=== PATIENT | female | born 1980 | race Caucasian/White ===

== ENCOUNTER 2016-11-07 18:41 | Inpatient (IN) | payer MEDICAID ==
--- NOTE | 2016-11-07 19:37 | EDM.PDOC ---
[id number] Complaint: SEIZURE Time Seen by Provider: 11/07/16 18:45 Source of Information: Reports: Patient, EMS History Limitations: Reports: Other (Some confusion with alcohol withdrawal) - History of Present Illness INITIAL COMMENTS - FREE TEXT/NARRATIVE: 28-year-old female admitted to [place] for detox today appears to be in delirium tremens with confusion, anxiousness, possible seizure, hypertension and tachycardia. Apparently she's been given 40 mg of Valium today. She is confused as to the time and place, think she's been in [place] since Tuesday and appears to be in withdrawal. She was given her Keppra dose orally. 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 Denies: Headache Psychiatric: Reports: Anxiety - Physical Exam Exam: See Below Exam Limited By: Other (Anxious, mildly confused) General Appearance: Alert, Anxious Eye Exam: Bilateral Eye: EOMI Respiratory/Chest: No Respiratory Distress, Lungs Clear Cardiovascular: Regular Rate, Rhythm, Tachycardia GI/Abdominal: Non-Tender Neuro Exam (Abbreviated): Alert, Disoriented (Mildly disoriented) Psychiatric: Anxious Skin Exam: Warm, Dry Course - Vital Signs Last Recorded V/S: Last Vital Signs Temp 98.5 F 11/07/16 23:40 Pulse 112 H 11/07/16 21:25 Resp 22 H 11/08/16 01:00 BP 132/86 11/08/16 01:00 Pulse Ox 95 11/08/16 01:00 - Orders/Labs/Meds Orders: Active Orders 24 hr Category Date Time Status MVI, Adult with Vitamin K [Infuvite Adult] 10 ml Med 11/07/16 20:00 Active Thiamine [Vitamin B-1] 100 mg Folic Acid 1 mg Magnesium Sulfate [Magnesium Sulfate 50%] 3 gm Sodium Chloride 0.9% [Normal Saline] 1,000 ml IV ASDIRECTED Medication Orders Diazepam (Valium) 5 - 20 mg IVPUSH Q4H PRN PRN Reason: Agitation Diazepam (Valium.) 5 - 20 mg PO Q4H PRN PRN Reason: Agitation Diazepam (Valium) 5 - 20 mg IVPUSH Q1H PRN PRN Reason: Agitation Last Admin: 11/08/16 01:00 Dose: 20 mg Admin: 11/08/16 00:13 Dose: 20 mg Diazepam (Valium.) 5 - 20 mg PO Q1H PRN PRN Reason: Agitation Diazepam (Valium) 10 - 20 mg IVPUSH Q30M PRN PRN Reason: Agitation Diazepam (Valium) 10 - 20 mg PO Q30M PRN PRN Reason: Agitation Multivitamins/Minerals 10 ml/Thiamine HCl 100 mg/ Folic Acid 1 mg/ Magnesium Sulfate 3 gm/ Sodium Chloride 1,017.2 mls @ 500 mls/hr IV ASDIRECTED JD Last Admin: 11/07/16 20:32 Dose: 500 mls/hr Sodium Chloride (Normal Saline) 1,000 mls @ 125 mls/hr IV ASDIRECTED JD Levetiracetam (Keppra) 1,500 mg PO BID [facility] Labs: Laboratory Tests 11/07/16 11/07/16 Range/Units 19:21 19:21 WBC 7.6 (4.5-11.0) K/uL RBC 4.12 (3.30-5.50) M/uL Hgb 13.3 (12.0-15.0) g/dL Hct 38.4 (36.0-48.0) % MCV 93 (80-98) fL MCH 32 H (27-31) pg MCHC 35 (32-36) % Plt Count 134 L (150-400) K/uL Neut % (Auto) 80 H (36-66) % Lymph % (Auto) 10 L (24-44) % [place] % (Auto) 10 H (2-6) % Eos % (Auto) 0 L (2-4) % Baso % (Auto) 0 (0-1) % Sodium 139 L (140-148) mmol/L Potassium 3.8 (3.6-5.2) mmol/L Chloride 100 (100-108) mmol/L Carbon Dioxide 27 (21-32) mmol/L Anion Gap 15.8 H (5.0-14.0) mmol/L BUN 8 (7-18) mg/dL Creatinine 0.8 (0.6-1.0) mg/dL Est Cr Clr Drug Dosing 95.59 mL/min Estimated GFR (MDRD) > 60 (>60) Glucose 121 H (74-106) mg/dL Calcium 7.9 L (8.5-10.1) mg/dL Magnesium 1.0 L (1.8-2.4) mg/dL Meds: Medications Generic Name Dose Route Start Last Admin Trade Name Freq PRN Reason Stop Dose Admin Diazepam 5 - 20 mg 11/07/16 23:47 Valium IVPUSH Q4H PRN Agitation Diazepam 5 - 20 mg 11/07/16 23:51 Valium. PO Q4H PRN Agitation Diazepam 5 - 20 mg 11/07/16 23:52 11/08/16 01:00 Valium IVPUSH 20 mg Q1H PRN Administration Agitation Diazepam 5 - 20 mg 11/07/16 23:55 Valium. PO Q1H PRN Agitation Diazepam 10 - 20 mg 11/07/16 23:56 Valium IVPUSH Q30M PRN Agitation Diazepam 10 - 20 mg 11/08/16 00:08 Valium PO Q30M PRN Agitation Multivitamins/Minerals 10 ml/ 1,017.2 mls @ 500 mls/hr 11/07/16 20:00 20:32 Thiamine HCl 100 mg/ Folic IV 500 mls/hr Acid 1 mg/ Magnesium Sulfate 3 ASDIRECTED JD Administration gm/ Sodium Chloride Sodium Chloride 1,000 mls @ 125 mls/hr 11/07/16 21:30 Normal Saline IV ASDIRECTED JD Levetiracetam 1,500 mg 11/08/16 09:00 Keppra PO BID JD Discontinued Medications Generic Name Dose Route Start Last Admin Trade Name Freq PRN Reason Stop Dose Admin Diazepam 10 - 20 mg 11/07/16 23:45 Valium PO Q30M JD Magnesium Oxide 400 mg 11/07/16 19:39 11/07/16 19:44 Magnesium Oxide PO 11/07/16 19:40 400 mg ONETIME ONE Administration - Re-Assessments/Exams Free Text/Narrative Re-Assessment/Exam: 11/07/16 19:37 Patient was given her normal dose of Keppra orally, 1500 mg. CBC BMP and magnesium were obtained. Patient was monitored for additional seizure activity. 11/07/16 19:52 Magnesium returned 1.0, she was given 400 mg by mouth. A banana bag was started at 500 mL an hour and Dr. Dubois was called for admission to manage delirium tremens after I discussed her case with Jaleel Gibson and they were uncomfortable taking her back. Departure - Departure Time of Disposition: 23:33 Disposition: Admitted As Inpatient 64 Condition: Fair Clinical Impression: Alcohol withdrawal delirium - Discharge Information - My Orders Last 24 Hours: My Active Orders 11/07/16 20:00 MVI, Adult with Vitamin K [Infuvite Adult] 10 ml Thiamine [Vitamin B-1] 100 mg Folic Acid 1 mg Magnesium Sulfate [Magnesium Sulfate 50%] 3 gm Sodium Chloride 0.9% [Normal Saline] 1,000 ml IV ASDIRECTED - Assessment/Plan Last 24 Hours: My Active Orders 11/07/16 20:00 MVI, Adult with Vitamin K [Infuvite Adult] 10 ml Thiamine [Vitamin B-1] 100 mg Folic Acid 1 mg Magnesium Sulfate [Magnesium Sulfate 50%] 3 gm Sodium Chloride 0.9% [Normal Saline] 1,000 ml IV ASDIRECTED
[2016-11-07] MEDS ORDERED: Magnesium Oxide 400 MG Tab PO ONE (19:39)
[2016-11-07] MEDS ORDERED: MVI, Adult with Vitamin K 10 ML, Thiamine 100 MG, Folic Acid 1 MG, Magnesium Sulfate 3 ... IV SCH ×5 (20:00)
[2016-11-07] MEDS ORDERED: Sodium Chloride 0.9% 1,000 ML IV SCH (21:30)
--- NOTE | 2016-11-07 21:33 | PCM.HP ---
H&P History of Present Illness - General Date of Service: 11/07/16 Admit Problem/Dx: Admission Diagnosis/Problem Admission Diagnosis/Problem Alcohol intoxication delirium Source of Information: Patient, EMS History Limitations: Reports: Altered Mental Status - History of Present Illness Initial Comments - Free Text/Narative: Came to [facility] today from [facility] giving a history of a Brain Tumor 2 years ago and had surgery. She has had seizures and had one today. Apparently did not get her Levetiracetam today and had a seizure today about 4 pm and was sent to the hospital ER and will be admitted. She had been40 mg of Valium for withdrawl of alcohol and still was in DT's then had a seizures. Lab showed showed Mg low. Other labs was normal. 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: Neurological History: Reports: Seizure Other Psychiatric History: HX OF ALCOHOL ABUSE Oncologic (Cancer) History: Reports: Brain - Past Surgical History Other HEENT Surgeries/Procedures: HX OF BRAIN TUMOR Social & Family History - Tobacco Use Smoking Status *Q: Unknown Ever Smoked H&P Review of Systems - Review of Systems: Review Of Systems: See Below General: Reports: No Symptoms HEENT: Reports: No Symptoms Pulmonary: Reports: No Symptoms Cardiovascular: Reports: No Symptoms Gastrointestinal: Reports: No Symptoms Genitourinary: Reports: No Symptoms Musculoskeletal: Reports: No Symptoms Skin: Reports: No Symptoms Psychiatric: Reports: Hallucinations, Hallucinations (Auditory) Neurological: Reports: Seizure Hematologic/Lymphatic: Reports: No Symptoms Immunologic: Reports: No Symptoms Exam - Exam Exam: See Below - Vital Signs Vital Signs: Last Vital Signs Temp 97.9 F 11/07/16 18:43 Pulse 112 H 11/07/16 21:25 Resp 20 11/07/16 21:25 BP 128/93 H 11/07/16 21:25 Pulse Ox 98 11/07/16 21:25 Weight: 140 lb - Exam General: Alert, Oriented, 4 HEENT: PERRLA, Hearing Intact, Mucosa Moist & [place], Nares Patent, Normal Nasal Septum, Posterior Pharynx Clear, Conjunctiva Clear, EOMI, EACs Clear, TMs Clear Neck: Supple, Trachea Midline, 2 Lungs: Clear to Auscultation, Normal Respiratory Effort Cardiovascular: Regular Rate, Regular Rhythm GI/Abdominal Exam: Normal Bowel Sounds, Soft, Non-Tender, No Organomegaly, No Distention, No Abnormal Bruit, No Mass, Pelvis Stable Back Exam: Normal Inspection, Full Range of Motion, NT Extremities: Normal Inspection, Normal Range of Motion, Non-Tender, No Pedal Edema, Normal Capillary Refill Peripheral Pulses: 1+: Radial (L), Radial (R) Skin: Warm, Dry, Intact Neuro Extensive - Mental Status: Memory Intact, Disorientation to Place, Disorientation to Time Neuro Extensive - Motor, Sensory, Reflexes: Normal Reflexes DTR: 2+: Patella (L), Patella (R) Psychiatric: Labile Mood - Patient Data Lab Results Last 24 hrs: Laboratory Results - last 24 hr 11/07/16 11/07/16 Range/Units 19:21 19:21 WBC 7.6 (4.5-11.0) K/uL RBC 4.12 (3.30-5.50) M/uL Hgb 13.3 (12.0-15.0) g/dL Hct 38.4 (36.0-48.0) % MCV 93 (80-98) fL MCH 32 H (27-31) pg MCHC 35 (32-36) % Plt Count 134 L (150-400) K/uL Neut % (Auto) 80 H (36-66) % Lymph % (Auto) 10 L (24-44) % [place] % (Auto) 10 H (2-6) % Eos % (Auto) 0 L (2-4) % Baso % (Auto) 0 (0-1) % Sodium 139 L (140-148) mmol/L Potassium 3.8 (3.6-5.2) mmol/L Chloride 100 (100-108) mmol/L Carbon Dioxide 27 (21-32) mmol/L Anion Gap 15.8 H (5.0-14.0) mmol/L BUN 8 (7-18) mg/dL Creatinine 0.8 (0.6-1.0) mg/dL Est Cr Clr Drug Dosing 95.59 mL/min Estimated GFR (MDRD) > 60 (>60) Glucose 121 H (74-106) mg/dL Calcium 7.9 L (8.5-10.1) mg/dL Magnesium 1.0 L (1.8-2.4) mg/dL Result Diagrams: 11/08/16 05:11 11/08/16 05:11 *Q Meaningful Use (ADM) - VTE *Q VTE Criteria *Q: - Stroke *Q Stroke Criteria *Q: - AMI *Q AMI Criteria *Q: Problem List Initiated/Reviewed/Updated: Yes Orders Last 24hrs: Active Orders 24 hr Category Date Time Status Patient Status [ADT] Routine ADT 11/07/16 21:16 Ordered Cardiac Monitoring [RC] .As Directed Care 11/07/16 21:19 Ordered Height and Weight [RC] DAILY Care 11/07/16 21:16 Ordered Intake and Output [RC] QSHIFT Care 11/07/16 21:19 Ordered Oxygen Therapy [RC] PRN Care 11/07/16 21:16 Ordered Up With Assistance [RC] ASDIRECTED Care 11/07/16 21:16 Ordered Up to Chair [RC] QID Care 11/07/16 21:16 Ordered VTE/DVT Education [RC] Per Unit Routine Care 11/07/16 21:16 Ordered Vital Signs [RC] Q4H Care 11/07/16 21:16 Ordered Regular Diet [DIET] Diet 11/08/16 Breakfast Ordered BASIC METABOLIC PANEL,BMP [CHEM] AM Lab 11/08/16 05:11 Ordered CBC WITH AUTO DIFF [HEME] AM Lab 11/08/16 05:11 Ordered MAGNESIUM [CHEM] AM Lab 11/08/16 05:11 Ordered MVI, Adult with Vitamin K [Infuvite Adult] 10 ml Med 11/07/16 20:00 Active Thiamine [Vitamin B-1] 100 mg Folic Acid 1 mg Magnesium Sulfate [Magnesium Sulfate 50%] 3 gm Sodium Chloride 0.9% [Normal Saline] 1,000 ml IV ASDIRECTED Sodium Chloride 0.9% @ 125 MLS/HR (1000ml) Med 11/07/16 21:30 Ordered Sodium Chloride 0.9% [Normal Saline] 1,000 ml IV ASDIRECTED levETIRAcetam [Keppra] Med 11/08/16 09:00 Ordered 1,500 mg PO BID Resuscitation Status Routine Resus Stat 11/07/16 21:16 Ordered Medication Orders Multivitamins/Minerals 10 ml/Thiamine HCl 100 mg/ Folic Acid 1 mg/ Magnesium Sulfate 3 gm/ Sodium Chloride 1,017.2 mls @ 500 mls/hr IV ASDIRECTED [facility] Last Admin: 11/07/16 20:32 Dose: 500 mls/hr Assessment/Plan Comment:: Assessment/Plan: #1. Alcoholism with DT's #2. History of brain tumor with seizures. On medicine. Will admit to the hospital ICU and observe through the night for recurrent seizures
[2016-11-07] MEDS ORDERED: Diazepam 2 MG Tab PO SCH (23:45)
[2016-11-07] MEDS ORDERED: Diazepam 5 MG Tab PO PRN (23:55)
[2016-11-08] MEDS ORDERED: Diazepam 2 MG Tab PO PRN (00:08)
[2016-11-08] MEDS: Diazepam 5 MG Tab PO PRN ×2 (08:03→13:57)
[2016-11-08] MEDS ORDERED: levETIRAcetam 250 MG Tab PO SCH (09:00)
[2016-11-08 11:53] VITALS: BP 117/88
--- NOTE | 2016-11-08 13:35 | PCM.DCSUM1 ---
Discharge Summary - Discharge Data Discharge Date: 11/08/16 Discharge Disposition: Home, Self-Care 01 Condition: Stable - Patient Summary/Data Complications: Stable throughtout her hospital stay woth seizures Hospital Course: Needed Ativan infrequently - Patient Instructions Diet: Heart Healthy Diet Activity: As Tolerated - Discharge Plan Prescriptions/Med Rec: LORazepam [Ativan] 0.5 mg PO TID PRN #6 tablet PRN Reason: Anxiety Home Medications: Home Meds LORazepam [Ativan] 0.5 mg PO TID PRN #6 tablet 11/08/16 [Rx] levETIRAcetam [Keppra] 1,500 mg PO BID tablet 11/08/16 [Rx] Patient Handouts: Chemical Dependency, Alcohol Intoxication, [id number] Forms: ED Department Discharge Referrals: PCP,None [Primary Care Provider] - - Discharge Summary/Plan Comment Discharge Summary/Plan Comment: Stay off Alc. and take her meds on time. To see her own Physician in one week. - General Info Date of Service: 11/08/16 Functional Status: Reports: Pain Controlled - Review of Systems General: Reports: No Symptoms HEENT: Reports: No Symptoms Pulmonary: Reports: No Symptoms Cardiovascular: Reports: No Symptoms Gastrointestinal: Reports: No Symptoms Genitourinary: Reports: No Symptoms Musculoskeletal: Reports: No Symptoms Skin: Reports: No Symptoms Neurological: Reports: No Symptoms Psychiatric: Reports: No Symptoms - Patient Data Vitals - Most Recent: Last Vital Signs Temp 98.5 F 11/07/16 23:40 Pulse 112 H 11/07/16 21:25 Resp 21 H 11/08/16 11:00 BP 117/88 11/08/16 11:00 Pulse Ox 99 11/08/16 11:00 Weight - Most Recent: 161 lb I&O - Last 24 hours: Intake & Output 11/07/16 11/08/16 11/08/16 22:59 06:59 14:59 Intake Total 1976 120 Output Total 1100 Balance 876 120 Lab Results - Last 24 hrs: Laboratory Results - last 24 hr 11/08/16 11/08/16 Range/Units 05:11 05:11 WBC 12.1 H (4.5-11.0) K/uL RBC 3.83 (3.30-5.50) M/uL Hgb 12.1 (12.0-15.0) g/dL Hct 36.2 (36.0-48.0) % MCV 95 (80-98) fL MCH 32 H (27-31) pg MCHC 33 (32-36) % Plt Count 113 L (150-400) K/uL Neut % (Auto) 83 H (36-66) % Lymph % (Auto) 10 L (24-44) % [place] % (Auto) 8 H (2-6) % Eos % (Auto) 0 L (2-4) % Baso % (Auto) 0 (0-1) % Sodium 140 (140-148) mmol/L Potassium 3.6 (3.6-5.2) mmol/L Chloride 104 (100-108) mmol/L Carbon Dioxide 28 (21-32) mmol/L Anion Gap 8.2 (5.0-14.0) mmol/L BUN 5 L (7-18) mg/dL Creatinine 0.7 (0.6-1.0) mg/dL Est Cr Clr Drug Dosing 109.92 mL/min Estimated GFR (MDRD) > 60 (>60) Glucose 86 (74-106) mg/dL Calcium 7.5 L (8.5-10.1) mg/dL Magnesium 2.1 D (1.8-2.4) mg/dL Med Orders - Current: Current Medications Diazepam (Valium) 5 - 20 mg IVPUSH Q4H PRN PRN Reason: Agitation Diazepam (Valium.) 5 - 20 mg PO Q4H PRN PRN Reason: Agitation Last Admin: 11/08/16 08:03 Dose: 10 mg Diazepam (Valium) 5 - 20 mg IVPUSH Q1H PRN PRN Reason: Agitation Last Admin: 11/08/16 06:00 Dose: 20 mg Diazepam (Valium.) 5 - 20 mg PO Q1H PRN PRN Reason: Agitation Last Admin: 11/08/16 09:57 Dose: 10 mg Diazepam (Valium) 10 - 20 mg IVPUSH Q30M PRN PRN Reason: Agitation Diazepam (Valium) 10 - 20 mg PO Q30M PRN PRN Reason: Agitation Sodium Chloride (Normal Saline) 1,000 mls @ 125 mls/hr IV ASDIRECTED JD Last Admin: 11/08/16 00:00 Dose: 125 mls/hr Levetiracetam (Keppra) 1,500 mg PO BID [facility] Last Admin: 11/08/16 08:43 Dose: 1,500 mg Discontinued Medications Diazepam (Valium) 10 - 20 mg PO Q30M [facility] Last Admin: 11/08/16 12:50 Dose: Not Given Multivitamins/Minerals 10 ml/Thiamine HCl 100 mg/ Folic Acid 1 mg/ Magnesium Sulfate 3 gm/ Sodium Chloride 1,017.2 mls @ 500 mls/hr IV ASDIRECTED [facility] Last Admin: 11/07/16 20:32 Dose: 500 mls/hr Magnesium Oxide (Magnesium Oxide) 400 mg PO ONETIME ONE Stop: 11/07/16 19:40 Last Admin: 11/07/16 19:44 Dose: 400 mg - Exam General: Reports: Alert, Oriented HEENT: Reports: Pupils Equal, Pupils Reactive, EOMI, Mucous Membr. Moist/[place] Neck: Reports: Supple Lungs: Reports: Clear to Auscultation, Normal Respiratory Effort Cardiovascular: Reports: Regular Rate, Regular Rhythm GI/Abdominal Exam: Normal Bowel Sounds, Soft, Non-Tender, No Organomegaly, No Distention, No Abnormal Bruit, No Mass, Pelvis Stable Back Exam: Reports: Normal Inspection, Full Range of Motion Extremities: Normal Inspection, Normal Range of Motion, Non-Tender, No Pedal Edema, Normal Capillary Refill Skin: Reports: Warm, Dry, Intact Neurological: Reports: No New Focal Deficit Psy/Mental Status: Reports: Alert, Normal Affect, Normal Mood *Q Meaningful Use (DIS) - VTE *Q VTE Criteria *Q: - Stroke *Q Stroke Criteria *Q: - AMI *Q AMI Criteria *Q:
--- NOTE | 2016-11-08 13:35 | PCM.PN ---
- General Info Date of Service: 11/08/16 Subjective Update: She is still going through withdraws but stable. She wants to go home. Functional Status: Reports: Pain Controlled - Review of Systems General: Reports: Weakness HEENT: Reports: No Symptoms Pulmonary: Reports: No Symptoms Cardiovascular: Reports: No Symptoms Gastrointestinal: Reports: No Symptoms Genitourinary: Reports: No Symptoms Musculoskeletal: Reports: No Symptoms Skin: Reports: No Symptoms Neurological: Reports: Tremors Psychiatric: Reports: Anxiety (withdrawls) - Patient Data Vitals - Most Recent: Last Vital Signs Temp 98.5 F 11/07/16 23:40 Pulse 112 H 11/07/16 21:25 Resp 21 H 11/08/16 11:00 BP 117/88 11/08/16 11:00 Pulse Ox 99 11/08/16 11:00 Weight - Most Recent: 161 lb I&O - Last 24 Hours: Intake & Output 11/07/16 11/08/16 11/08/16 22:59 06:59 14:59 Intake Total 1976 120 Output Total 1100 Balance 876 120 Lab Results Last 24 Hours: Laboratory Results - last 24 hr 11/08/16 11/08/16 Range/Units 05:11 05:11 WBC 12.1 H (4.5-11.0) K/uL RBC 3.83 (3.30-5.50) M/uL Hgb 12.1 (12.0-15.0) g/dL Hct 36.2 (36.0-48.0) % MCV 95 (80-98) fL MCH 32 H (27-31) pg MCHC 33 (32-36) % Plt Count 113 L (150-400) K/uL Neut % (Auto) 83 H (36-66) % Lymph % (Auto) 10 L (24-44) % [place] % (Auto) 8 H (2-6) % Eos % (Auto) 0 L (2-4) % Baso % (Auto) 0 (0-1) % Sodium 140 (140-148) mmol/L Potassium 3.6 (3.6-5.2) mmol/L Chloride 104 (100-108) mmol/L Carbon Dioxide 28 (21-32) mmol/L Anion Gap 8.2 (5.0-14.0) mmol/L BUN 5 L (7-18) mg/dL Creatinine 0.7 (0.6-1.0) mg/dL Est Cr Clr Drug Dosing 109.92 mL/min Estimated GFR (MDRD) > 60 (>60) Glucose 86 (74-106) mg/dL Calcium 7.5 L (8.5-10.1) mg/dL Magnesium 2.1 D (1.8-2.4) mg/dL Med Orders - Current: Current Medications Diazepam (Valium) 5 - 20 mg IVPUSH Q4H PRN PRN Reason: Agitation Diazepam (Valium.) 5 - 20 mg PO Q4H PRN PRN Reason: Agitation Last Admin: 11/08/16 08:03 Dose: 10 mg Diazepam (Valium) 5 - 20 mg IVPUSH Q1H PRN PRN Reason: Agitation Last Admin: 11/08/16 06:00 Dose: 20 mg Diazepam (Valium.) 5 - 20 mg PO Q1H PRN PRN Reason: Agitation Last Admin: 11/08/16 09:57 Dose: 10 mg Diazepam (Valium) 10 - 20 mg IVPUSH Q30M PRN PRN Reason: Agitation Diazepam (Valium) 10 - 20 mg PO Q30M PRN PRN Reason: Agitation Sodium Chloride (Normal Saline) 1,000 mls @ 125 mls/hr IV ASDIRECTED [facility] Last Admin: 11/08/16 00:00 Dose: 125 mls/hr Levetiracetam (Keppra) 1,500 mg PO BID [facility] Last Admin: 11/08/16 08:43 Dose: 1,500 mg Discontinued Medications Diazepam (Valium) 10 - 20 mg PO Q30M [facility] Last Admin: 11/08/16 12:50 Dose: Not Given Multivitamins/Minerals 10 ml/Thiamine HCl 100 mg/ Folic Acid 1 mg/ Magnesium Sulfate 3 gm/ Sodium Chloride 1,017.2 mls @ 500 mls/hr IV ASDIRECTED [facility] Last Admin: 11/07/16 20:32 Dose: 500 mls/hr Magnesium Oxide (Magnesium Oxide) 400 mg PO ONETIME ONE Stop: 11/07/16 19:40 Last Admin: 11/07/16 19:44 Dose: 400 mg - Exam General: Alert, Oriented HEENT: Pupils Equal, Pupils Reactive, EOMI, Mucous Membr. Moist/[place] Neck: Supple Lungs: Clear to Auscultation, Normal Respiratory Effort Cardiovascular: Regular Rate, Regular Rhythm GI/Abdominal Exam: Normal Bowel Sounds, Soft, Non-Tender, No Organomegaly, No Distention, No Abnormal Bruit, No Mass, Pelvis Stable Back Exam: Normal Inspection, Full Range of Motion Extremities: Normal Inspection, Normal Range of Motion, Non-Tender, No Pedal Edema, Normal Capillary Refill Peripheral Pulses: 1+: Radial (L), Radial (R) Skin: Warm, Dry, Intact Wound/Incisions: Healing Well Neurological: No New Focal Deficit Psy/Mental Status: Alert, Normal Affect, Normal Mood - Problem List Review Problem List Initiated/Reviewed/Updated: Yes - My Orders Last 24 Hours: My Active Orders 11/07/16 23:45 CIWAA Assessment [RC] Q4H 11/07/16 23:47 Diazepam [Valium] 5 - 20 mg IVPUSH Q4H PRN 11/07/16 23:51 Diazepam [Valium] 5 - 20 mg PO Q4H PRN 11/07/16 23:52 Diazepam [Valium] 5 - 20 mg IVPUSH Q1H PRN 11/07/16 23:55 Diazepam [Valium] 5 - 20 mg PO Q1H PRN 11/07/16 23:56 Diazepam [Valium] 10 - 20 mg IVPUSH Q30M PRN 11/08/16 00:08 Diazepam [Valium] 10 - 20 mg PO Q30M PRN 11/08/16 09:00 levETIRAcetam [Keppra] 1,500 mg PO BID - Plan Plan:: Assessment/Plan: #1. Alcoholism with DT's Stable presently. #2. History of brain tumor with seizures. On medicine. Plan home today.
== END 2016-11-08 14:10 | disposition home or self-care (01) | DRG 897 ==
LOC: JP.ED 18:41 → EDBD 18:41 → JP.ICU 21:16
PROVIDERS: ADMIT Internal Medicine; ATTEND Internal Medicine
DX: F10.231 Alcohol dependence with withdrawal delirium (principal); R56.9 Unspecified convulsions; Z79.899 Other long term (current) drug therapy
CPT/HCPCS: 36415; 80048; 83735; 85025; 99284; 99285; A9270-GY; J3360; J3411; J3475; J3490; J7040